=== PATIENT | male | born 1930 | race Caucasian/White ===

== ENCOUNTER 2016-04-12 23:06 | Inpatient (IN) | payer OTHER ==
[~2016-04-12] VITALS: Ht 180.3 cm; Wt 89.9 kg
[2016-04-13] VITALS (7 sets, daily range): BP systolic 122–148; RESP 16–18; TEMP 97.4–98; Ht 180.3 cm; Wt 89.9 kg
[2016-04-13] MEDS ORDERED: GLUCAGON 1 MG VIAL IM PRN (05:35)
[2016-04-13] MEDS ORDERED: DEXTROSE 50% SYRINGE 50 ML IV PRN (05:35)
[2016-04-13] MEDS: SOD CHLOR 0.9% 1000 ML IV SCH ×2 (05:56→14:57)
[2016-04-13] MEDS: PANTOPRAZOLE 40 MG VIAL IV SCH ×2 (08:41→20:20)
[2016-04-13] MEDS: COMBIGAN OP SOLN EYE EACH SCH ×2 (11:38→20:20)
[2016-04-13] MEDS: amLODIPine 5 MG TAB PO SCH (11:38)
[2016-04-13] MEDS: LEVOTHYROXINE 0.15 MG TAB PO SCH (11:39)
[2016-04-13] MEDS ORDERED: [UNRECOGNIZED DRUG - OTHER] PO SCH (11:40)
[2016-04-13] MEDS ORDERED: MEMANTINE HCL PO SCH (11:40)
[2016-04-13] MEDS ORDERED: [UNRECOGNIZED DRUG - REMARK] XX SCH (11:43)
[2016-04-13] MEDS ORDERED: PHARMACY TO DOSE ZOSYN IV SCH (12:25)
[2016-04-13] MEDS: PIPERACIL/TAZO 3.375GM/50ML 50 ML IV SCH ×2 (14:22→17:31)
[2016-04-13] MEDS: GABAPENTIN 300 MG CAP PO SCH (20:20)
[2016-04-14] MEDS: PIPERACIL/TAZO 3.375GM/50ML 50 ML IV SCH ×4 (01:03→17:35)
[2016-04-14] MEDS: SOD CHLOR 0.9% 1000 ML IV SCH ×3 (01:08→22:11)
[2016-04-14 02:33] VITALS: BP_SYST 113; RESP 16; TEMP 98
[2016-04-14] MEDS: LEVOTHYROXINE 0.15 MG TAB PO SCH (06:25)
[2016-04-14 07:44] VITALS: BP_SYST 116; RESP 16; TEMP 97.9
[2016-04-14] MEDS: PANTOPRAZOLE 40 MG VIAL IV SCH ×2 (09:42→21:57)
[2016-04-14] MEDS: amLODIPine 5 MG TAB PO SCH (09:43)
[2016-04-14] MEDS: COMBIGAN OP SOLN EYE EACH SCH ×2 (09:43→21:57)
[2016-04-14 11:21] VITALS: BP_SYST 120; RESP 18; TEMP 96
[2016-04-14] MEDS ORDERED: KCL CR 20 MEQ TAB PO ONE (13:35)
[2016-04-14 14:59] VITALS: BP_SYST 121; RESP 18; TEMP 97
[2016-04-14] MEDS ORDERED: MISSING DOSE XX ONE (16:20)
[2016-04-14 19:54] VITALS: BP_SYST 146; RESP 18; TEMP 98
[2016-04-14] MEDS: GABAPENTIN 300 MG CAP PO SCH (21:57)
[2016-04-14] MEDS: METRONIDAZOLE 500 MG TAB PO SCH (21:59)
[2016-04-14 23:23] VITALS: BP_SYST 120; RESP 18; TEMP 98.1
[2016-04-15] MEDS: PIPERACIL/TAZO 3.375GM/50ML 50 ML IV SCH ×3 (00:29→11:17)
[2016-04-15 04:32] VITALS: BP_SYST 138; RESP 18; TEMP 98.9
[2016-04-15] MEDS: LEVOTHYROXINE 0.2 MG TAB PO SCH (06:54)
[2016-04-15 07:46] VITALS: BP_SYST 142; RESP 20; TEMP 98.7
[2016-04-15] MEDS: METRONIDAZOLE 500 MG TAB PO SCH ×2 (08:07→17:10)
[2016-04-15] MEDS: COMBIGAN OP SOLN EYE EACH SCH ×2 (08:07→21:15)
[2016-04-15] MEDS: PANTOPRAZOLE 40 MG VIAL IV SCH ×2 (08:07→21:15)
[2016-04-15] MEDS: amLODIPine 5 MG TAB PO SCH (08:07)
[2016-04-15] MEDS: SOD CHLOR 0.9% 1000 ML IV SCH (10:15)
[2016-04-15 10:31] VITALS: BP_SYST 130; RESP 20; TEMP 99.9
[2016-04-15] MEDS ORDERED: POTASSIUM CHLORIDE PREMIX 50 ML IV SCH (11:50)
[2016-04-15] MEDS ORDERED: POTASSIUM CHLORIDE IV SCH ×2 (12:35)
[2016-04-15] MEDS ORDERED: LIDOCAINE 1% IV SCH ×2 (12:35)
[2016-04-15] MEDS ORDERED: FILL PIGGYBACK IV SCH ×2 (12:35)
[2016-04-15] MEDS ORDERED: MISSING DOSE XX ONE ×3 (13:25→16:15)
[2016-04-15] MEDS: LIDOCAINE 1% IV SCH ×8 (15:06→18:53)
[2016-04-15] MEDS: FILL PIGGYBACK IV SCH ×8 (15:06→18:53)
[2016-04-15] MEDS: POTASSIUM CHLORIDE IV SCH ×8 (15:06→18:53)
[2016-04-15 15:35] VITALS: BP_SYST 130; RESP 16; TEMP 97.4
[2016-04-15 19:35] VITALS: BP_SYST 159; RESP 20; TEMP 99.1
[2016-04-15] MEDS: GABAPENTIN 300 MG CAP PO SCH (21:15)
[2016-04-15 23:00] VITALS: BP_SYST 138; RESP 20; RESP 93; TEMP 97.8
[2016-04-16] MEDS: METRONIDAZOLE 500 MG TAB PO SCH ×3 (00:42→16:32)
[2016-04-16] MEDS: SOD CHLOR 0.9% 1000 ML IV SCH (00:42)
[2016-04-16 04:00] VITALS: BP_SYST 127; RESP 19; TEMP 98
[2016-04-16] MEDS: PANTOPRAZOLE 40 MG TAB PO SCH ×2 (06:12→16:32)
[2016-04-16] MEDS: LEVOTHYROXINE 0.2 MG TAB PO SCH (06:12)
[2016-04-16 07:49] VITALS: BP_SYST 162; RESP 18; TEMP 98.3
[2016-04-16] MEDS: COMBIGAN OP SOLN EYE EACH SCH ×2 (08:16→19:51)
[2016-04-16] MEDS: amLODIPine 5 MG TAB PO SCH (08:16)
[2016-04-16 12:14] VITALS: BP_SYST 154; RESP 20; TEMP 98.3
[2016-04-16 15:57] VITALS: BP_SYST 146; RESP 18; TEMP 97.9
[2016-04-16] MEDS ORDERED: POTASSIUM CHLORIDE PREMIX 50 ML IV SCH (17:45)
[2016-04-16] MEDS ORDERED: KCL CR 20 MEQ TAB PO ONE (18:10)
[2016-04-16 19:34] VITALS: BP_SYST 140; RESP 18; TEMP 97.6
[2016-04-16] MEDS: GABAPENTIN 300 MG CAP PO SCH (19:51)
[2016-04-16] MEDS ORDERED: HALOPERIDOL 5 MG/ML VIAL IM PRN (20:30)
[2016-04-16] MEDS ORDERED: LORAZEPAM 2 MG/ML VIAL IV PRN (20:30)
[2016-04-16 23:21] VITALS: BP_SYST 140; RESP 16; TEMP 97.8
[2016-04-17] MEDS: METRONIDAZOLE 500 MG TAB PO SCH ×2 (00:23→08:06)
[2016-04-17 02:51] VITALS: BP_SYST 110; RESP 16; TEMP 97.6
[2016-04-17] MEDS: LEVOTHYROXINE 0.2 MG TAB PO SCH ×2 (05:47→05:54)
[2016-04-17] MEDS: PANTOPRAZOLE 40 MG TAB PO SCH ×2 (05:47→05:53)
[2016-04-17] MEDS: amLODIPine 5 MG TAB PO SCH (08:06)
[2016-04-17] MEDS: COMBIGAN OP SOLN EYE EACH SCH (08:06)
[2016-04-17] MEDS ORDERED: DOXYCYCLINE 100 MG TAB PO SCH (10:50)
[2016-04-17 11:30] VITALS: BP_SYST 120; RESP 18; TEMP 97.4
[2016-04-17 15:20] VITALS: BP_SYST 132; RESP 18; TEMP 97.9
[2016-04-17 16:31] VITALS: BP_SYST 132; RESP 18; TEMP 97.9
[2016-04-17] MEDS ORDERED: SACCHA BOULARDII 250MG CAP PO SCH (21:00)
[2016-04-17] MEDS ORDERED: FAMOTIDINE 20 MG TAB PO SCH (21:00)
== END 2016-04-17 19:00 | DRG 371 ==
LOC: ENRESERVTM → ENRESERVDT → ENRESERV → ER 23:06 → EMR 04-13 03:53 → ENPENDDIS 04-13 03:53 → 5THW 04-13 05:07
PROVIDERS: ADMIT Internal Medicine; ATTEND Internal Medicine
DX: A04.7 Enterocolitis due to Clostridium difficile (principal); J18.9 Pneumonia, unspecified organism; E11.22 Type 2 diabetes mellitus with diabetic chronic kidney disease; J44.0 Chronic obstructive pulmonary disease with (acute) lower respiratory infection; G30.9 Alzheimer's disease, unspecified; N18.3 Chronic kidney disease, stage 3 (moderate); D62 Acute posthemorrhagic anemia; F02.80 Dementia in other diseases classified elsewhere, unspecified severity, without behavioral disturbance, psychotic disturbance, mood disturbance, and anxiety; E78.5 Hyperlipidemia, unspecified; E03.9 Hypothyroidism, unspecified; I12.9 Hypertensive chronic kidney disease with stage 1 through stage 4 chronic kidney disease, or unspecified chronic kidney disease; Z79.84 Long term (current) use of oral hypoglycemic drugs; G47.33 Obstructive sleep apnea (adult) (pediatric); E87.6 Hypokalemia; Z85.46 Personal history of malignant neoplasm of prostate; Z95.2 Presence of prosthetic heart valve
CPT/HCPCS: 36415; 71010; 80048; 80053; 81001; 82274; 82607; 82746; 82947; 83540; 84439; 84443; 84466; 85014; 85018; 85025; 85610; 86850; 86900; 86901; 87088; 87493; 99222; 99233